=== PATIENT | male | born 2000 | race Two or more races ===

== ENCOUNTER 2019-04-22 16:48 | Emergency (ER) | payer MEDICAID ==
[~2019-04-22] VITALS: Ht 172.7 cm; Wt 90.9 kg
--- NOTE | 2019-04-22 17:45 | NUR ---
PT CAME IN [place] TESTICULAR PAIN IN BOTH TESTES. STARTED ABOUT 4 DAYS AGO. DENIES DISCHARGE. HE DID STATE "I HAD UNPROTECTED SEX A FEW DAYS AGO". MOTHER IS BEDSIDE.
--- NOTE | 2019-04-22 18:15 | NUR ---
PT IS RESTING IN HOSPITAL BED. PT IS BEDSIDE. Addendum: 04/22/19 at 1815 by NANI MOTHER IS BEDSIDE*
--- NOTE | 2019-04-22 19:07 | NUR ---
RECEIVED REPORT FROM JANI MCLAUGHLIN. PT BACK FROM US, UPDATED ON POC INCLUDING PENDING TEST RESULTS AND CHART REVIEW BY ERP, DENIED QUESTIONS/CONCERNS AT THIS TIME. DECLINED NEED FOR WARM BLANEKT. CALL LIGHT IN REACH.
--- NOTE | 2019-04-22 20:22 | NUR ---
PT AMBULATED TO BR, INSTRUCTED ON CLEAN CATCH FOR URINE. URINE SAMPLES COLLECTED AND HAND DELIVERED TO LAB
[2019-04-22 20:32] LABS: MICROSCOPIC NOT IND
[2019-04-22 20:36] LABS: CULTURE INDICATED? NO
--- NOTE | 2019-04-22 20:41 | NUR ---
PT PACING IN ROOM, STATES IS READY TO GO HOME. AWARE WAITING FOR FINAL TEST RESULTS FROM [facility] AND CHART REVIEW BY ERP.
[2019-04-22 20:55] VITALS: BP 153/88
--- NOTE | 2019-04-22 20:55 | NUR ---
REVIEWED DISCHARGE INSTRUCTIONS W/ PT, VERBALZIED UNDERSTANDING TO INFORMATION PROVIDED INCLUDING FOLLOW UP CARE AND RETURN PRECAUTIONS, DENIED QUESTIONS/CONCERNS. PT AMBULATED FROM ED W/ MOTHER.
== END 2019-04-22 20:58 | disposition home or self-care (01) ==
LOC: ED 19:29
DX: N50.811 Right testicular pain (principal); N50.812 Left testicular pain
CPT/HCPCS: 76870; 81003; 87491; 87591; 99284

== ENCOUNTER 2020-07-03 19:32 | Emergency (ER) | payer MEDICAID ==
[~2020-07-03] VITALS: Ht 172.7 cm; Wt 99.4 kg
--- NOTE | 2020-07-03 19:57 | NUR ---
PT TO ROOM 35 W/ C/O R HIP PAIN. 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 STATES PAIN RADIATES TO MID THIGH. CMS INTACT TO RLE. PT RESTING ON GURNEY. AL.
[2020-07-03] MEDS ORDERED: DIAZEPAM 5 MG TABLET PO ONE (20:30)
[2020-07-03] MEDS ORDERED: DIAZEPAM 5 MG TABLET ONE ×2 (20:40→21:01)
--- NOTE | 2020-07-03 20:51 | NUR ---
REPORT FROM [facility] TRANSFER OF CARE AT THIS TIME
--- NOTE | 2020-07-03 20:51 | NUR ---
REPORT GIVEN TO JANI GARCIA.
--- NOTE | 2020-07-03 21:08 | NUR ---
PT MEDICATED PER MAR AT THIS TIME, PROVIDED WARM BLANKET, MOM REMAINS AT BEDSIDE FOR SUPPORT.
[2020-07-03 22:48] VITALS: BP 138/84
--- NOTE | 2020-07-03 22:49 | NUR ---
Patient/Caregiver given discharge instructions and they have confirmed that they understand the instructions. Patient ambulatory with steady gait.
== END 2020-07-03 22:51 | disposition home or self-care (01) ==
LOC: ED 22:15
DX: M45.6 Ankylosing spondylitis lumbar region (principal); M45.8 Ankylosing spondylitis sacral and sacrococcygeal region
CPT/HCPCS: 72110; 73502; 99284; J7512